=== PATIENT | female | born 1985 | race Hispanic/Latino ===

== ENCOUNTER → 2017-06-13 | Emergency (ER) | payer SELFPAY ==
[2017-06-13 18:36] VITALS: BMI 21.5
[2017-06-13 19:13] VITALS: BP 135/93; PULSE 114; RESP 17; TEMP 97.8; O2SAT 100
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
[2017-06-13 21:30] LABS: PH,URINE 6.5 (4.7-8.0); URINE BILIRUBIN SMALL (NEGATIVE); URINE BLOOD NEGATIVE (NEGATIVE); URINE GLUCOSE (UA) NEGATIVE (NEGATIVE); URINE KETONE TRACE mg/dL (NEGATIVE); URINE LEUKOCYTE ESTERASE TRACE Leu/uL (NEGATIVE); URINE PROTEIN 30 mg/dL (<30 mg/dL)
[2017-06-13 21:31] LABS: URINE APPEARANCE CLEAR (CLEAR); URINE COLOR YELLOW (YELLOW)
[2017-06-13 21:38] LABS: URINE BACTERIA MANY (NEG); URINE RBC 0 - 2 /hpf (0-2)
[2017-06-13 21:39] LABS: URINE AMORPHOUS SEDIMENT FEW
== END | disposition left against medical advice (07) ==
LOC: ED 18:35
DX: R44.0 Auditory hallucinations (principal); F32.9 Major depressive disorder, single episode, unspecified; F12.10 Cannabis abuse, uncomplicated
CPT/HCPCS: 81001; 87086; 99283; G0480

== ENCOUNTER 2017-06-19 21:50 | Emergency (ER) | payer SELFPAY ==
[2017-06-19 21:56] VITALS: BMI 23.8
[2017-06-19] MEDS ORDERED: Tmp-Smz 800 mg-160 mg DS Tab PO STA (21:57)
[2017-06-19 22:01] VITALS: RESP 18; TEMP 97.5
--- NOTE | 2017-06-19 22:02 | ED PDOC ---
Arrival/HPI - General Chief Complaint: Headache Time Seen by Provider: 06/19/17 21:53 Historian: Patient, Police - History of Present Illness Narrative History of Present Illness (Text): 06/19/17 22:06 31 y/o female, allergic to haldol/tylenol, [place] police for medical clearance s/p caught by the police as she was trying to break in to a car. Pt. stated that she is on her period, feels like her usual headache, no pain meds available, no change in vision, no nausea or vomiting, no fever or chills, no night sweats. Pt. stated that she has been scratching the lt. anterior tom, started to became redness for the past 3 days, no fever or chills, no calf pain, no difficulty walking or standing, no other medical or psychological complaints. Past Medical History - Provider Review Nursing Documentation Reviewed: Yes - Infectious Disease Hx of Infectious Diseases: None - Tetanus Immunization Tetanus Immunization: Up to Date (tetanus 12/21/14 ( records review)) - Past Medical History Past Medical History: No Previous - Cardiac Hx Hypertension: No - Pulmonary Hx Respiratory Disorders: No - Neurological Hx Seizures: No - HEENT Hx HEENT Disorder: No - Renal Hx Renal Disorder: Yes - Endocrine/Metabolic Hx Endocrine Disorders: No - Hematological/Oncological Hx Blood Disorders: No - Integumentary Hx Dermatological Disorder: No - Musculoskeletal/Rheumatological Hx Arthritis: Yes Hx Fractures: Yes (rib fx) - Gastrointestinal Hx Gastrointestinal Disorders: No - Genitourinary/Gynecological Hx Genitourinary Disorders: No Hx Sexually Transmitted Diseases: No - Psychiatric Hx Anxiety: Yes Hx Depression: Yes Hx Substance Use: Yes ('WEED' 4 DAYS AGO) - Past Surgical History Past Surgical History: No Previous - Surgical History Hx Appendectomy: Yes - Anesthesia Hx Anesthesia: Yes Hx Anesthesia Reactions: No Hx Malignant Hyperthermia: No - Suicidal Assessment Feels Threatened In Home Enviroment: Yes Family/Social History - Physician Review Nursing Documentation Reviewed: Yes Family/Social History: Unknown Family HX Smoking Status: Heavy Smoker > 10 Cigarettes Daily Hx Alcohol Use: No (PT DENIES) Hx Substance Use: Yes ('WEED' 4 DAYS AGO) Substance used: heroin , sniffs , 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 Hx Substance Use Treatment: Yes Allergies/Home Meds Allergies/Adverse Reactions: Allergies haloperidol [From Haldol] Allergy (Verified 06/13/17 19:04) DIZZINESS haloperidol lactate [From Haldol] Allergy (Verified 06/13/17 19:04) DIZZINESS PT DENIES ANY ALLERGIES,ALLERGIES VERIFIED FROM HISTORY quetiapine [From Seroquel] Allergy (Verified 06/13/17 19:04) RASH acetaminophen [From Tylenol] Adverse Reaction (Verified 06/13/17 19:04) ANAPHYLAXIS Review of Systems - Review of Systems Constitutional: absent: Fatigue, Fevers Eyes: absent: Vision Changes ENT: absent: Hearing Changes Respiratory: absent: SOB, Cough Cardiovascular: absent: Chest Pain Gastrointestinal: absent: Abdominal Pain, Diarrhea, Nausea, Vomiting Skin: Cellulitis. absent: Rash, Pruritis, Skin Lesions, Laceration, Abscess Neurological: Headache. absent: Dizziness, Focal Weakness Psychiatric: absent: Anxiety, Depression, Suicidal Ideation Physical Exam Vital Signs Temp Pulse Resp BP Pulse Ox 06/19/17 22:00 97.5 F L 96 H 18 119/78 100 - Systems Exam Head: Present: Atraumatic, Normocephalic. No: Tenderness, Contusion, Swelling, Ecchymosis, Abrasion, Laceration Pupils: Present: PERRL Extroacular Muscles: Present: EOMI Conjunctiva: Present: Normal Ears: Present: NORMAL TM, Normal Canal. No: Erythema Mouth: Present: Moist Mucous Membranes Neck: Present: Normal Range of Motion Respiratory/Chest: Present: Clear to Auscultation, Good Air Exchange. No: Respiratory Distress, Accessory Muscle Use Cardiovascular: Present: Regular Rate and Rhythm, Normal S1, S2. No: Murmurs Abdomen: Present: Normal Bowel Sounds. No: Tenderness, Distention, Peritoneal Signs, Rebound, Guarding Back: Present: Normal Inspection Upper Extremity: Present: Normal Inspection. No: Cyanosis, Edema Lower Extremity: Present: Normal Inspection. No: Edema Neurological: Present: GCS=15, CN II-XII Intact, Speech Normal, Motor Func Grossly Intact, Gait Normal, Memory Normal, Other (normal finger to nose test, normal finger to nose test. ) Skin: Present: Warm, Dry, Rashes (visible lt. anterior tom cellulitis with infected superficial abrasion with the cellulitis approx. [id number] with no ulcers , no fluctuant abscess. ), Normal Color Lymphatic: No: Cervical Adenopathy Psychiatric: Present: Alert, Oriented x 3, Normal Insight, Normal Concentration Medical Decision Making ED Course and Treatment: 06/19/17 22:05 -no emergent indication of the CT head or laboratory infection -Keflex/bactrim ds -Toradol IM -Observe and reassess 06/20/17 00:10 -Beta hcg within normal limit, not . -Pt. stated that she feels fine now, doesn't need any pain medication. -Pt. refused tetanus and pain med. -Pt. is release to the police law enforcement. Pt. has no homicidal or suicidal ideation, no auditory or visual hallucination. -Pt. is medically clear and stable at this point for the police enforcement/ incarceration. -Discharge with keflex/bactrim, bacitracin oinment, follow up with your own pmd and Infectious disease within 2 days, return to ER for any new or worsening signs or symptoms. - Lab Interpretations Lab Results: Lab Results 06/19/17 22:50: Beta HCG, Quant < 2.39 - Medication Orders Current Medication Orders: Discontinued Medications Cephalexin Monohydrate (Keflex) 500 mg PO STAT STA PRN Reason: Protocol Stop: 06/19/17 21:58 Last Admin: 06/20/17 00:03 Dose: 500 mg Ketorolac Tromethamine (Toradol) 60 mg IM STAT STA Stop: 06/19/17 21:59 Last Admin: 06/20/17 00:08 Dose: Not Given Non-Admin Reason: Patient Refused Trimethoprim/Sulfamethoxazole (Bactrim Ds Tab) 1 tab PO STAT STA PRN Reason: Protocol Stop: 06/19/17 21:58 Last Admin: 06/20/17 00:03 Dose: 1 tab - PA / FINANCIAL RESERVE CLERK / Resident Statement / has reviewed & agrees with the documentation as recorded. Disposition/Present on Arrival - Present on Arrival Any Indicators Present on Arrival: No History of DVT/PE: No History of Uncontrolled Diabetes: No Urinary Catheter: No History of Decub. Ulcer: No History Surgical Site Infection Following: None - Disposition Have Diagnosis and Disposition been Completed?: Yes Diagnosis: Cellulitis Disposition: HOME/ ROUTINE Disposition Time: 00:24 Patient Plan: Discharge Condition: GOOD Discharge Instructions (ExitCare): Cellulitis (ED) Additional Instructions: -Pt. is medically clear and stable at this point for the police enforcement/ incarceration. -Discharge with keflex/bactrim, bacitracin oinment, follow up with your own pmd and Infectious disease within 2 days, return to ER for any new or worsening signs or symptoms. Prescriptions: Bacitracin Ointment [Bacitracin] 1 appful TOP BID #15 g Cephalexin [cephalexin] 500 mg PO QID #40 cap Ibuprofen [Motrin] 600 mg PO QID PRN #30 tab PRN Reason: Other Sulfamethoxazole/Trimethoprim [Bactrim DS 800 mg-160 mg] 1 tab PO BID #20 tab Referrals: PCP,NO [Primary Care Provider] - Follow up with primary [facility] [place] - Follow up with primary Forms: [employer] ([place] Islander), WORK NOTE
[2017-06-20 00:33] VITALS: BP 123/82; PULSE 87; O2SAT 99
== END 2017-06-20 00:34 ==
LOC: ED 21:50
DX: L03.116 Cellulitis of left lower limb (principal)